=== PATIENT | female | born 1970 | race Caucasian/White ===

== ENCOUNTER 2025-06-25 09:50 | Emergency (ER) | payer SELFPAY ==
--- NOTE | 2025-06-25 10:32 | XR_ITS ---
Examination: Hand, right 3 views Technique: Hand AP, oblique, lateral 3 views Date and time of exam: June 25, 2025 1031 hours INDICATIONS: Injured hand today with fourth digit pain. FINDINGS: Acute fractures at the base of the proximal phalanx fifth digit, without significant displacement No dislocation. No foreign body. IMPRESSION: Acute fractures base of the proximal phalanx fourth digit.
[2025-06-25] MEDS: HYDROcodone/APAP 5/325 TABLET 1 TAB PO (10:42)
[2025-06-25] MEDS: IBUPROFEN TAB 400 MG TABLET 800 MG PO (10:42)
--- NOTE | 2025-06-25 10:52 | EDNOTE_ITS ---
Upper Extremity Injury RME/HPI General Chief Complaint: Hand/Wrist Problems Stated Complaint: R) 4TH FINGER INJURY Time Seen by Provider: 06/25/25 09:55 Arrival date/time: 06/25/25 09:50 54-year-old female presents to the emergency department today for complaint of right hand fourth digit injury patient reports that her hand got caught in the dog's collar and pulled injuring her right hand Limitations: no limitations Related Data Previous Rx's ?Medication ?Instructions ?Recorded albuterol sulfate 90 mcg/actuation 1 puff inhalation Q 6H PRN 05/05/19 aerosol inhaler (Proventil HFA) shortness of breath or wheezing #18 grams albuterol sulfate 90 mcg/actuation 2 puff inhalation Q 6H PRN 05/30/19 aerosol inhaler shortness of breath #8.5 gra ms albuterol sulfate 90 mcg/actuation 2 puff inhalation Q 4H PRN 08/07/19 aerosol inhaler shortness of breath #8.5 gra ms fluticasone 250 mcg-salmeterol 50 1 inh inhalation Q12 H #60 ea 08/07/19 mcg/dose blistr powdr for inhalation (Advair Diskus) prednisone 10 mg tablet 30 mg (3 x 10 mg) PO BID #18 tabs 08/07/19 ibuprofen 800 mg tablet 800 mg PO TID PRN pain #30 t abs 09/10/20 cyclobenzaprine 5 mg tablet 5 mg PO BID #14 tabs 05/12 ibuprofen 800 mg tablet 800 mg PO Q6H PRN pain #10 t abs 05/12/21 hydrocodone 5 mg-acetaminophen 325 1 tab PO BID PRN pa in #10 tabs 06/25/25 mg tablet ibuprofen 600 mg tablet 600 mg PO Q6H #30 tabs 06/25 Allergies Allergy/AdvReac Type Severity Reaction Status Date / Time No Known Allergies Allergy Verified 06/25/25 09:53 Review of Systems Review of Systems Systems Reviewed: All systems reviewed, normal except as documented Constitutional Constitutional: Reports system reviewed and no additional complaints, except as documented, Denies fever(s) and Denies headache(s) Eyes Eyes: Reports system reviewed and no additional complaints, except as documented and Denies blurry vision ENT Ears, Nose, Mouth, and Throat: Reports system reviewed and no additional complaints, except as documented, Denies headache(s), Denies nasal congestion and Denies nasal discharge Cardiovascular Cardiovascular: Reports system reviewed and no additional complaints, except as documented, Denies chest pain and Denies dyspnea Respiratory Respiratory: Reports system reviewed and no additional complaints, except as documented, Denies chest congestion, Denies cough and Denies dyspnea Gastrointestinal Gastrointestinal: Reports system reviewed and no additional complaints, except as documented and Denies abdominal pain Musculoskeletal Musculoskeletal: Reports system reviewed and no additional complaints, except as documented, Reports arthralgias (Right fourth digit injury) and Denies deformity Integumentary/Breasts Skin/Breast: Reports system reviewed and no additional complaints, except as documented and Denies rash Neurologic Neurologic: Reports system reviewed and no additional complaints, except as documented, Reports as per HPI and Denies headache(s) Past Medical History Past Medical History CARDIAC: Negative Congestive Heart Failure RESPIRATORY: Positive Chronic Obstructive Pulmonary Disease (COPD) GENITOURINARY: Negative Renal Disease REPRODUCTIVE: Positive Previous Pregnancies MUSCULOSKELETAL: Positive Fractures ENDOCRINE: Negative Diabetes Mellitus Type 1 or Diabetes Mellitus Type 2 Surgical History SURGICAL: Positive Hysterectomy and Section Social History SMOKING STATUS: Current every day smoker SUBSTANCE USE: does not use ED Exam General Limitations: Present no limitations General appearance: Present alert and in no apparent distress Head Head exam: Present atraumatic, normocephalic and normal inspection Eye Eye exam: Present normal appearance, PERRL and EOMI; Absent conjunctival injection ENT ENT exam: Present normal exam, normal oropharynx and mucous membranes moist Neck Neck exam: Present normal inspection, full ROM and trachea midline Chest Chest inspection: Present normal inspection and symmetric chest wall rise Respiratory Respiratory exam: Present normal lung sounds bilaterally Cardiovascular Cardiovascular exam: Present regular rate, normal rhythm and normal heart sounds Abdominal Exam Abdominal exam: Present soft and normal bowel sounds Extremities Exam Extremities exam: Present full ROM, tenderness (Tenderness right hand fourth digit), normal capillary refill and joint swelling Back Exam Back exam: Present normal inspection and full ROM Neurological Exam Neurological exam: Present alert, oriented X3 and CN II-XII intact Psychiatric Psychiatric exam: Present normal affect and normal mood Skin Skin exam: Present warm, dry, intact and normal color Course Quality Measures none Orders Category Date Time Status XR hand comp RT min 3V Stat Exams 06/25/25 10:32 Completed HYDROcodone*/APAP 5/325 [[place] 5/325] Med 06/25/25 10:32 Discontinued 1 tab PO X1 ONE Ibuprofen Tab [Motrin Tab] Med 06/25/25 10:32 Discontinued 800 mg PO X1 ONE Vital Signs Vital signs: O2 saturation 98% room air within normal limits PROCEDURES: Splint Fabrication: Pre-Fabricated Type: Finger Protector Reason for Splint: Optimal Positioning and Pain Management Circulation Distal to Splint: Yes Movement Distal to Splint: Yes Senation Distal to Splint: Yes Tolerance: Tolerates Well Extremity Injury MDM Narrative MDM Narrative:: 54-year-old female presents to the emergency department today for complaint of right hand fourth digit injury patient reports that her hand got caught in the dog's collar and pulled injuring her right hand On exam patient has pain and swelling of the right hand fourth digit X-ray obtained patient has fracture of the right hand fourth digit Patient placed in a finger splint Patient given pain medication Patient instructed to follow-up with orthopedist soon as possible for worsening symptoms return immediately Patient data External records reviewed:: [facility] previous records Clinical information provided by:: patient Social determinants that could affect healthcare access:: none Patient has the following chronic illnesses:: None How is presenting disease/condition affected by chronic disease/condition?: no chronic disease Evaluation data The following diagnostics were reviewed and interpreted by me:: radiology exam(s) Lab and/or radiology exams considered but not ordered:: Radiology obtain Interpretation Summary: Reviewed by me Medications / Prescriptions Medications or Prescriptions considered but not ordered:: Given Medication administrations:: Medication Administration History Discontinued Medications Hydrocodone Bitart/Acetaminophen (Hydrocodone/Apap 5/325 Tablet) 1 tab PO X1 ONE Stop: 06/25/25 10:33 Last Admin: 06/25/25 10:42 Dose: 1 tab Documented By: ABDOUL Ibuprofen (Ibuprofen Tab 400 Mg Tablet) 800 mg PO X1 ONE Stop: 06/25/25 10:33 Last Admin: 06/25/25 10:42 Dose: 800 mg Documented By: ABDOUL Given Consultations Consultation(s) initiated? (list below): No Diagnosis Upper Extremity Injury Differential Diagnosis: finger sprain, dislocation of finger and fracture of hand Most likely diagnosis given after review of the tests above:: Finger fracture Admission Indicated Admission indicated?: not indicated Admission Request Was there a request for admission?: No Disposition Plan Disposition Plan: Discharge Discharge Attestation Discharge Attestation: The patient and all family members were given an opportunity to ask questions and understood the discharge instructions. Discharge instructions specifically effects, indications for sooner follow up or return to the emergency department, and the expected course of current diagnosis. Patient condition: Stable Discharge Plan Plan Patient Disposition: HOME (Self Care) Discharge Disposition comment: Stable Prescriptions/Referrals Prescriptions/Med Rec: New hydrocodone-acetaminophen 5-325 mg tablet 1 tab PO BID MDD 10 PRN (Reason: pain) Qty: 10 0RF ibuprofen 600 mg tablet 600 mg PO Q6H Qty: 30 0RF No Action albuterol sulfate [Proventil HFA] 90 mcg/actuation HFA aerosol inhaler 1 puff INH Q6H PRN (Reason: shortness of breath or wheezing) Qty: 18 0RF ibuprofen 800 mg tablet 800 mg PO TID PRN (Reason: pain) Qty: 30 0RF albuterol sulfate 90 mcg/actuation HFA aerosol inhaler 2 puff INH Q6H PRN (Reason: shortness of breath) Qty: 8.5 0RF fluticasone propion-salmeterol [Advair Diskus] 250-50 mcg/dose blister with device 1 inh INH Q12H Qty: 60 0RF prednisone 10 mg tablet 30 mg PO BID Qty: 18 0RF Rx Instructions: administer with food or milk albuterol sulfate 90 mcg/actuation HFA aerosol inhaler 2 puff INH Q4H PRN (Reason: shortness of breath) Qty: 8.5 0RF cyclobenzaprine 5 mg tablet 5 mg PO BID Qty: 14 0RF ibuprofen 800 mg tablet 800 mg PO Q6H PRN (Reason: pain) Qty: 10 0RF Problem List Clinical Impression: Fracture of finger of right hand Patient/Caregiver Discharge Instructions Education Materials: [facility] Additional Instructions: Please follow-up with primary care doctor or get a referral to orthopedist as soon as possible for worsening symptoms return immediately Print Language: Finnish Stand Alone Forms: Leah Award Info., Patient Portal Info Letter PA/BOILER ASSISTANT OPERATOR Supervising Physician PA/BOILER ASSISTANT OPERATOR Supervising Physician: dr darby
== END 2025-06-25 13:04 | disposition home or self-care (01) ==
LOC: SERX 11:07
PROVIDERS: Emergency Provider Nurse Practitioner Primary Care
DX: S62.644A Nondisplaced fracture of proximal phalanx of right ring finger, initial encounter for closed fracture (principal); X58.XXXA Exposure to other specified factors, initial encounter
CPT/HCPCS: 73130; 99283; A9270